=== PATIENT | female | born 1955 ===

== ENCOUNTER 2018-06-25 00:41 | Emergency (ER) | payer MEDICARE, OTHER ==
[2018-06-25] MEDS ORDERED: Sodium Chloride 0.9% 1,000 ML IV ONE ×2 (01:15→01:25)
[2018-06-25] MEDS ORDERED: Iohexol 240 (50 ml) PO ONE (01:15)
--- NOTE | 2018-06-25 01:18 | ED PDOC ---
HPI: Abdomen Time Seen by Provider: 06/25/18 01:07 Chief Complaint (Nursing): Abdominal Pain Chief Complaint (Provider): Abdominal Pain History Per: Patient History/Exam Limitations: no limitations Onset/Duration Of Symptoms: Days (two) Location Of Pain/Discomfort: RLQ, LLQ Quality Of Discomfort: "Pain" (Pt presents to the ED with a history of diverticulitis, complaining of two days of abdominal pain with diarhhea and one instance of vomiting. The patient denies generally nausea and fever. Her pain is located in the right and left lower quadrants. Pt does indicate that her pain is of the same location and quality as the pain she feels when having a bout of diverticulitis) Associated Symptoms: Nausea, Vomiting, Diarrhea, Loss Of Appetite. denies: Fever, Urinary Symptoms Past Medical History Reviewed: Historical Data, Nursing Documentation, Vital Signs Vital Signs: Last Vital Signs Temp 98.4 F 06/25/18 00:53 Pulse 75 06/25/18 00:53 Resp 15 06/25/18 00:53 BP 103/68 06/25/18 00:53 Pulse Ox 100 06/25/18 00:53 - Medical History PMH: Diverticulitis - Family History Family History: States: Unknown Family Hx - Home Medications Home Medications: Ambulatory Orders Medication Instructions Recorded Ondansetron ODT [Zofran ODT] 1 tab PO TID PRN #30 tab 06/25/18 metroNIDAZOLE [Flagyl] 1 tab PO TID #30 tab 06/25/18 - Allergies Allergies/Adverse Reactions: Allergies Allergy/AdvReac Type Severity Reaction Status Date / Time No Known Allergies Allergy Verified 06/25/18 01:03 Review of Systems ROS Statement: Except As Marked, All Systems Reviewed And Found Negative Gastrointestinal: Positive for: Nausea, Vomiting, Abdominal Pain, Diarrhea Physical Exam - Reviewed Nursing Documentation Reviewed: Yes Vital Signs Reviewed: Yes - Physical Exam Appears: Positive for: Well, Non-toxic, No Acute Distress. Negative for: Uncomfortable Head Exam: Positive for: ATRAUMATIC, NORMAL INSPECTION Skin: Positive for: Normal Color, Warm, Dry. Negative for: Diaphoresis, Pallor, Rash Eye Exam: Positive for: Normal appearance. Negative for: Periorbital swelling, Periorbital tenderness ENT: Positive for: Normal ENT Inspection Neck: Positive for: Normal, Supple Cardiovascular/Chest: Positive for: Regular Rate, Rhythm Respiratory: Positive for: Normal Breath Sounds Pulses-Carotid (L): 2+ Pulses-Carotid (R): 2+ Pulses-Radial (L): 2+ Pulses-Radial (R): 2+ Gastrointestinal/Abdominal: Positive for: Bowel Sounds (active in all four quadrants), Soft, Tenderness (right and left quadrant tenderness; there is no tenderness at [place] Point; the rovsing sign is positive as is the psoas test). Negative for: Guarding, Rebound Back: Positive for: Normal Inspection, L CVA Tenderness, R CVA Tenderness. Negative for: Vertebral Tenderness - Laboratory Results Result Diagrams: 06/25/18 01:40 06/25/18 01:40 - ECG O2 Sat by Pulse Oximetry: 100 Medical Decision Making Medical Decision Making: I: R/O Diverticulitis vs other acute abdomen etiology P: CBC CMP Lipase Blood Clx UA Zofran Fluids CT Abd and Pelvis with Contrast 03:14 CT abd/pelvis Moderate sliding hiatal hernia. Prior cholecystectomy. Uncomplicated colonic diverticulosis. Prior hysterectomy. Scattered fluid filled small bowel loops. The liver is of uniform attenuation without mass or defect. There is no intra or extrahepatic biliary ductal dilatation. The spleen is normal. The pancreas is of normal contour and attenuation characteristics. There is no evidence of adrenal mass. Both kidneys demonstrate prompt and equal nephrograms. The kidneys are normal in size, shape and configuration. There is no evidence of renal or ureteral mass. No renal or ureteral calculi are identified. There is no hydroureter or hydronephrosis. No evidence for appendicitis. There is no bowel wall thickening. No evidence for small or large bowel obstruction. There is no evidence of abdominal ascites or lymphadenopathy. There is no evidence of intrinsic or extrinsic bladder mass. There is no pelvic ascites or lymphadenopathy. Images of the lung bases show no evidence of pleural or parenchymal mass. There are no pleural effusions. The bony structures are free of lytic or blastic lesions. Moderate diffuse spondylosis. IMPRESSION: Moderate sliding hiatal hernia. Prior cholecystectomy. Uncomplicated colonic diverticulosis. Prior hysterectomy. Scattered fluid filled small bowel loops. Ileus versus developing enteritis. The findings of the above scan were discussed with the patient and she was given an opportunity to ask questions. She was told that it would be prudent to follow up with her PMD and that she was also being given a referral to a GI specialist. She understood. She is also being given a prescription for metrodiazonal and zofran The patient is no longer nauseaus and is stable for discharge Disposition - Clinical Impression Clinical Impression: Abdominal discomfort, Enteritis, Diverticulosis, Ileus, unspecified - Patient ED Disposition Is Patient to be Admitted: No Counseled Patient/Family Regarding: Studies Performed, Diagnosis, Need For Followup, Rx Given - Disposition Referrals: Diego Zaidi MD [Primary Care Provider] - Gautam Serrato MD, PhD [Staff Provider] - Disposition: Routine/Home Disposition Time: 03:42 Condition: STABLE Prescriptions: metroNIDAZOLE [Flagyl] 1 tab PO TID #30 tab Ondansetron ODT [Zofran ODT] 1 tab PO TID PRN #30 tab PRN Reason: Nausea/Vomiting Instructions: Diverticulosis (DC), Diverticulosis, Viral Gastroenteritis, Viral Gastroenteritis, Adult (DC), Colitis (DC) Forms: [employer] (Sinhala)
[2018-06-25 01:46] LABS: BASO % 0.6 % (0.0-2.0); EOS # 0.1 K/uL (0.0-0.7); EOS % 1.5 % (0.0-4.0); HEMOGLOBIN 13.7 g/dL (12.0-16.0); LYMPH # 0.8 K/uL (1.0-4.3); LYMPH % 12.8 % (20.0-40.0); MEAN CELL VOLUME 83.6 fl (81.0-99.0); MEAN CORPUSCULAR HEMOGLOBIN 27.5 pg (27.0-31.0); MEAN CORPUSCULAR HGB CONC 32.9 g/dL (33.0-37.0); MEAN PLATELET VOLUME 9.2 fl (7.2-11.7); MONO # 0.4 K/uL (0.0-0.8); MONO % 7.2 % (0.0-10.0); NEUT # 4.7 K/uL (1.8-7.0); NEUT % 77.9 % (50.0-75.0); NRBC % 0.1 % (0.0-0.0); WHITE BLOOD COUNT 6.1 K/uL (4.8-10.8)
[2018-06-25 01:54] LABS: ALB/GLOB RATIO 1.3 (1.0-2.1); ALBUMIN 4.8 g/dL (3.5-5.0); ALT/SGPT 33 U/L (9-52); AST/SGOT 26 U/L (14-36); BLOOD UREA NITROGEN 13 mg/dl (7-17); CALCIUM 9.9 mg/dL (8.4-10.2); GFR NON-AFRICAN AMERICAN > 60; LIPASE 56 U/L (23-300)
[2018-06-25] MEDS ORDERED: Sodium Chloride 0.9% 50 ML IV ONE (02:19)
[2018-06-25] MEDS ORDERED: Iohexol 300 100 ML IJ ONE (02:20)
[2018-06-25] MEDS ORDERED: Potassium Chloride 20 mEq ER Tab PO ONE ×2 (03:51→04:09)
[2018-06-25] MEDS ORDERED: Potassium Chloride 20 mEq 100 ML IVPB SCH ×2 (04:00)
[2018-06-25 07:06] VITALS: BP 145/77; PULSE 81; RESP 16; TEMP 99.5; O2SAT 97
--- NOTE | 2018-06-25 09:24 | CT ---
Date of service: 06/25/2018 PROCEDURE: CT Abdomen and Pelvis with contrast HISTORY: Abdominal pain. COMPARISON: None. TECHNIQUE: Intravenous contrast dose: 90 cc Omnipaque 300. Radiation dose: Total exam DLP = 727.00 mGy-cm. This CT exam was performed using one or more of the following dose reduction techniques: Automated exposure control, adjustment of the mA and/or kV according to patient size, and/or use of iterative reconstruction technique. FINDINGS: LOWER THORAX: Small hiatal hernia. LIVER: Unremarkable. No gross lesion or ductal dilatation. GALLBLADDER AND BILE DUCTS: Status post cholecystectomy. No abnormality is seen in the gallbladder fossa. PANCREAS: Unremarkable. No gross lesion or ductal dilatation. SPLEEN: Unremarkable. ADRENALS: Unremarkable. No mass. KIDNEYS AND URETERS: Unremarkable. No hydronephrosis. No solid mass. VASCULATURE: Unremarkable. No aortic aneurysm. No atherosclerotic calcification or mural plaque present. BOWEL: Unremarkable. No obstruction. No gross mural thickening. APPENDIX: Normal appendix. PERITONEUM: Unremarkable. No free fluid. No free air. LYMPH NODES: Unremarkable. No enlarged lymph nodes. BLADDER: Unremarkable. REPRODUCTIVE: Prior hysterectomy BONES: No acute fracture. OTHER FINDINGS: None. IMPRESSION: No significant or acute findings to account for/ related to the clinical presentation. Additional benign and/or incidental findings described above. Concordant results (preliminary interpretation) provided by [employer]. Procedure Completed: 02:31. Preliminary Report: Interpreted and electronically signed: 03:14. Final Interpretation: 09:20.
== END 2018-06-25 05:55 | disposition home or self-care (01) ==
LOC: H.ER 00:41
DX: K52.9 Noninfective gastroenteritis and colitis, unspecified (principal); K57.30 Diverticulosis of large intestine without perforation or abscess without bleeding; K56.7 Ileus, unspecified; K44.9 Diaphragmatic hernia without obstruction or gangrene
CPT/HCPCS: 74177; 80053; 83690; 85025; 87040; 96361; 96374; 99284; J2405; J7030; Q9967